=== PATIENT | female | born 1970 | race Hispanic/Latino ===

== ENCOUNTER 2023-03-12 06:24 | Emergency (ER) | payer BC ==
[~2023-03-12] VITALS: Ht 157.5 cm; Wt 78.9 kg
[2023-03-12 07:46] LABS: BASOPHILS % (AUTO) 0.9 % (0.0-5.0); EOSINOPHILS % (AUTO) 2.9 % (0.0-8.0); HEMATOCRIT 40.6 % (36-48); LYMPHOCYTES % (AUTO) 33.8 % (21.0-51.0); MEAN CORPUSCULAR HEMOGLOBIN 28.1 pg (27.0-33.0); MEAN CORPUSCULAR HGB CONC 32.5 g/dL (32.0-36.0); MEAN CORPUSCULAR VOLUME 86.4 fL (79-99); MONOCYTES % (AUTO) 7.2 % (3.0-13.0); NEUTROPHILS % (AUTO) 54.9 % (40.0-77.0); PLATELET COUNT (AUTO) 256 K/uL (130-400); RED CELL DISTRIBUTION WIDTH 13.2 % (11.0-15.5); WHITE BLOOD COUNT (AUTO) 7.5 K/uL (4.8-10.8)
[2023-03-12 07:53] LABS: APPEARANCE,URINE CLEAR (CLEAR); BILIRUBIN,URINE NEGATIVE (NEGATIVE); COLOR,URINE COLORLESS (YELLOW); GLUCOSE, URINE (UA) NEGATIVE (NEGATIVE); KETONES,URINE NEGATIVE (NEGATIVE); LEUKOCYTE ESTERASE ,URINE 250 Leu/uL (NEGATIVE); NITRATE,URINE NEGATIVE (NEGATIVE); OCCULT BLOOD,URINE NEGATIVE (NEGATIVE); PH,URINE 5.5 (5.0-8.0); PROTEIN,URINE NEGATIVE (NEGATIVE); UROBILINOGEN,URINE 0.2 mg/dL (0.2-1.0)
[2023-03-12 07:55] LABS: CREATININE 0.8 mg/dL (0.5-1.5); POTASSIUM 3.6 mmol/L (3.5-5.1)
[2023-03-12 08:00] LABS: ALBUMIN 3.9 g/dL (3.5-5.0); MAGNESIUM 1.8 mg/dL (1.80-2.40); TOTAL PROTEIN, SERUM 7.8 g/dL (6.0-8.3)
[2023-03-12 08:09] LABS: B-TYPE NATRIURETIC PEPTIDE 6 pg/mL (0-100)
[2023-03-12 08:11] LABS: BACTERIA,URINE RARE /HPF (None Seen); RBC,URINE 0-1 /HPF (0-1); SQUAMOUS EPITHELIAL CELL,UR RARE /HPF (0-2); TRANSITIONAL EPI CELLS,URINE RARE /HPF (None Seen)
[2023-03-12] MEDS ORDERED: LABETALOL 20MG SYG IV ONE (08:30)
[2023-03-12 08:34] VITALS: BP 127/88
== END 2023-03-12 09:35 | disposition home or self-care (01) ==
LOC: EDH 06:24
DX: I10 Essential (primary) hypertension (principal); R42 Dizziness and giddiness; M54.2 Cervicalgia; Z79.899 Other long term (current) drug therapy
CPT/HCPCS: 36415; 70450; 80053; 81001; 82550; 83735; 83880; 84484; 85025; 87088; 93005